=== PATIENT | male | born 1950 | race Caucasian/White ===

== ENCOUNTER → 2016-11-08 | Outpatient (CLI) | payer BC ==
--- NOTE | 2016-11-08 14:24 | CONS ---
DATE OF CONSULTATION: 11/08/2016 CONSULTATION/NEW PATIENT EVALUATION: A 66-year-old gentleman who has been evaluated in the [facility] for possible obstructive sleep apnea-hypopnea syndrome. HISTORY OF PRESENT ILLNESS/SLEEP/WAKE EVALUATION: Patient had a sleep study about 20 years ago but it was not fully conclusive because patient did not sleep well that night in the Sleep Center. [place] state. SLEEP SCHEDULE: Presently, his sleep schedule on working days from 10 p.m. to 7 a.m. and on weekends from around 11 p.m. to 7:30 a.m. FALLING ASLEEP: No problem with the falling asleep although he has TV set in bedroom. DURING SLEEP: He sleeps in different positions including back, side and stomach with his and according to her, he has loud snoring and episodes of stopped breathing during this sleep. Patient wakes up from sleep 4 times with gasping for air and nocturia. DURING THE DAY/WAKE STATE: May feel sleepiness during the day. [place] Sleepiness Scale is slightly increased to 9. He has episodes of irritability, sexual dysfunction and worry about his sleep. . PAST MEDICAL HISTORY: Positive for hypertension, back problem, nose problems. Occasional episodes of restless legs in the evening before sleep. PAST SURGICAL HISTORY: Nasal surgery for nasal septum deviation. MEDICATIONS: Valsartan, diclofenac. SOCIAL HISTORY: Negative for smoking. Alcohol consumption occasional. REVIEW OF SYSTEMS: Tiredness and sleepiness during the day, awakenings from sleep. FAMILY HISTORY: Hypertension, heart problems, sinus headaches, snoring, restless legs. During physical exam, a 66-year-old gentleman without distress. BP 140/81, HR 72, RR 16. Height 5, 10. Weight 197, BMI 28, neck 15-1/2 inches in circumference. Temperature 97.9. Oropharynx extremely low position of soft palate. Submandibular lymph node slightly palpable, but normal range of the size, not painful. NECK: Supple. No JVD. Thyroid is not palpable. LUNGS: Clear to percussion and to auscultation. Good air exchange. No wheezing or rhonchi. HEART: S1, S2 regular. No murmurs, gallops or rubs. ABDOMEN: Soft and nontender. Bowel sounds are present. No organomegaly appreciated. EXTREMITIES: No clubbing or cyanosis. 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 Cranial nerves 2 to 7 intact. There is no fasciculation or atrophy noted. No focal deficits observed. IMPRESSION: 1. Snoring, witnessed episodes of stopped breathing during sleep, extremely low position of soft palate, multiple awakenings from sleep, sleepiness, obstructive sleep apnea-hypopnea syndrome. 2. Hypertension. 3. Back problem. 4. Status post surgery for nasal septum deviation. 5. Occasional episodes of restless legs in the evening before bedtime. PLAN: 1. Polysomnography for evaluation of patient's breathing during sleep. 2. CPAP/BiPAP titration if sleep study confirms obstructive sleep apnea-hypopnea syndrome. 3. Preferable position during sleep on the side. 4. No driving if patient feels any sleepiness. Patient is aware of civil and criminal liability for unsafe driving. 5. I will see patient for follow-up visit to explain results of the testing and following plan. Thank you very much for referring this patient for consultation. Sincerely, Atul Trammell MD, PhD, FAASM. Diplomat of [place] [employer], Sleep Medicine Board by [place] [employer] [place] [employer] [facility] [employer] [facility] [place]
== END | disposition home or self-care (01) ==
LOC: SLEEP 11:43
PROVIDERS: ATTEND Internal Medicine
DX: G47.33 Obstructive sleep apnea (adult) (pediatric) (principal); I10 Essential (primary) hypertension; Z98.890 Other specified postprocedural states; G25.81 Restless legs syndrome; Z79.899 Other long term (current) drug therapy
CPT/HCPCS: 99211

== ENCOUNTER → 2017-01-24 | Outpatient (CLI) | payer BC ==
--- NOTE | 2017-01-24 23:00 | PN ---
DATE OF SERVICE: 01/24/2017 66-year-old gentleman who has been followed in the sleep center for treatment of obstructive sleep apnea-hypopnea syndrome. Patient had recently had diagnostic sleep study and CPAP titration and I discussed results of the sleep studies with the patient in detail. He has moderate, close to severe obstructive sleep apnea by results of home sleep apnea test. He underwent successful CPAP titration. I checked his CPAP unit. It showed that patient is using equipment 100% of the time practically 100% more than 4 hours. Average time is 7.3 hours per night. Pressure is around 10 cm of water. Leak is up to 14 L/min, which is acceptable. Apnea-hypopnea index for last month is 2.1. [place] Sleepiness Scale is 4. Patient sleeps better with the machine and feels better during the day. MEDICATIONS: Valsartan, Diclofenac. During physical exam, the patient in no distress. VITAL SIGNS: BP 152/87, HR 84, RR 16. Weight 196, temp 98.3. Oxygen saturation at room air 94% and extremely low position of soft palate, slight asymmetry of nose. Neck: Supple. No JVD. Thyroid is not palpable. LUNGS: Clear to percussion and to auscultation. Good air exchange. No wheezing or rhonchi. HEART: S1, S2 regular. No murmurs, gallops, or rubs. ABDOMEN: Soft and nontender. Bowel sounds are present. No organomegaly appreciated. EXTREMITIES: No clubbing or cyanosis. 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 Cranial nerves 2 to 7 intact. There is no fasciculation or atrophy noted. No focal deficits observed. IMPRESSION: 1. Moderate, close to severe obstructive sleep apnea-hypopnea syndrome. Apnea-hypopnea index 27.8 with oxygen desaturation to 78% on control with CPAP at 10 cm of water. Patient demonstrated practically 100% compliance with treatment benefiting from treatment. 2. Severe periodic limb movements have been documented during titration. No complaints of movements of the legs at the night at the present time. 3. Hypertension. 4. Back problem. 5. Status post surgical treatment for nasal septum deviation. 6. History of restless legs in the past. PLAN: 1. Patient will continue to use his CPAP equipment every night for the whole night. 2. Watching weight. 3. We will try nasal pillow mask. 4. No driving if feeling any sleepiness. Thank you very much for allowing me to participate in the management of your patient. Sincerely, Atul Trammell MD, PhD, FAASM. Diplomat of [place] [employer], Sleep Medicine Board by [employer] [employer] [employer] [facility] [place]
== END | disposition home or self-care (01) ==
LOC: SLEEP 14:32
PROVIDERS: ATTEND Internal Medicine
DX: G47.33 Obstructive sleep apnea (adult) (pediatric) (principal); I10 Essential (primary) hypertension; Z79.899 Other long term (current) drug therapy

== ENCOUNTER → 2017-01-30 | Outpatient (CLI) | payer BC ==
[2017-01-30 14:09] LABS: Basophils % (A) 1 %; CH 35.2; CHCM 34.9; Eosinophils # (A) 0.1 k/uL (0-0.7); Eosinophils % (A) 2 %; HCT 47.9 % (39.0-53.0); HDW 2.58; HGB 16.4 gm/dL (13.0-17.5); Luc # (Auto) 0.15; Luc % (Auto) 2; Lymphocytes # (A) 1.2 k/uL (1.0-4.8); Lymphocytes % (A) 20 %; MCH 34.7 pg (25.0-35.0); MCHC 34.2 g/dL (31.0-37.0); MCV 101.2 fL (80.0-100.0); Macrocytosis Slight; Monocytes # (A) 0.4 k/uL (0-1.0); Monocytes % (A) 6 %; Neutrophils # (A) 4.2 k/uL (1.3-7.7); Neutrophils % (A) 69 %; RBC 4.73 m/uL (4.30-5.90); RDW 13.2 % (11.5-15.5); WBC 6.1 k/uL (3.8-10.6); WBC (Perox) 5.78
[2017-01-30 14:13] LABS: Appearance,Urine Clear (Clear); Bilirubin,Urine Negative (Negative); Glucose,Urine (UA) Negative (Negative); Ketones,Urine Negative (Negative); Leukocyte Esterase,Urine Negative (Negative); Mucus,Urine Rare /hpf; Nitrite,Urine Negative (Negative); PH, Urine 5.5 (5.0-8.0); Particle Count 1411; Protein,Urine 1+ (Negative); Specific Gravity,Urine 1.019 (1.001-1.035); UA Billing (MACRO vs. MICRO) MICRO; Urobilinogen,Urine <2.0 mg/dL (<2.0)
[2017-01-30 14:29] LABS: Anion Gap 12 mmol/L; Blood Urea Nitrogen 23 mg/dL (9-20); Calcium 9.8 mg/dL (8.4-10.2); Carbon Dioxide 29 mmol/L (22-30); Chloride 106 mmol/L (98-107); Glucose 117 mg/dL (74-99); Non-African American GFR(MDRD) >60 (>60 ml/min/1.73 sqM); Potassium 4.2 mmol/L (3.5-5.1); Sodium 147 mmol/L (137-145)
== END | disposition home or self-care (01) ==
LOC: LABPAT 13:42
PROVIDERS: ATTEND Urology
DX: Z01.812 Encounter for preprocedural laboratory examination (principal); R35.0 Frequency of micturition; Z79.899 Other long term (current) drug therapy
CPT/HCPCS: 80048; 81001; 85025; 87086

== ENCOUNTER 2017-02-06 07:32 | Day surgery (SDC) | payer BC ==
[2017-02-04 10:31] VITALS: BMI 25.7
[~2017-02-06 07:32] MED LIST: AMPICILLIN 1,000 MG in SODIUM CHLORIDE 0.9% 50 ML IVPB ONE; DEXAMETHASONE SOD PHOSPHATE 10 MG/ML 1 ML VIAL IV ONE; GENTAMICIN 120 MG in SODIUM CHLORIDE 0.9% 100 ML IVPB ONE; HYDROmorphone 1 MG/ML 1 ML SYRINGE IVP PRN; LACTATED RINGERS 1,000 ML IV SCH; LIDOCAINE 1% 20 ML VIAL (10MG/ML) FOR IV START INTRADERMA PRN; ONDANSETRON 4 MG/2 ML VIAL IVP ONE; SCOPOLAMINE 1.5MG/72HR PATCH TRANSDERM ONE
[2017-02-06] MEDS ORDERED: PROPOFOL 10 MG/ML 20 ML VIAL IV ONE (08:52)
[2017-02-06] MEDS ORDERED: GLYCOPYRROLATE 0.2 MG/ML 2 ML VIAL ONE (08:52)
[2017-02-06] MEDS ORDERED: HYDROmorphone (PF) 1 MG/ML ONE (08:52)
[2017-02-06] MEDS ORDERED: fentaNYL (PF) 50 MCG/ML 2 ML AMP ONE (08:52)
[2017-02-06] MEDS ORDERED: LIDOCAINE 1% INJ 10MG/ML (20 ML MDV) ONE (08:52)
[2017-02-06] MEDS ORDERED: MIDAZOLAM 2 MG/2 ML VIAL ONE (08:52)
[2017-02-06] MEDS ORDERED: GENTAMICIN 80 MG in SODIUM CHLORIDE 0.9% 500 ML IRRIGATION ONE (09:18)
[2017-02-06] MEDS ORDERED: LACTATED RINGERS 1,000 ML IV ONE (09:59)
--- NOTE | 2017-02-06 10:27 | P.OP ---
Date of Procedure: 02/06/17 Preoperative Diagnosis: Organic impotence Postoperative Diagnosis: Same Procedure(s) Performed: Insertion of AMS series 700 CX inflatable penile implant, 18 cm +2 cm rear-tip bdr ,65 mL reservoir Implants: Anesthesia: MARITZA Surgeon: Reginald Barber Trade Mark Examiner #1: [place] Varma Estimated Blood Loss (ml): 50 Pathology: none sent Condition: stable Disposition: PACU Indications for Procedure: The patient is a 66-year-old gentleman with organic impotence who was failed all conservative measures including testosterone PDE 5 inhibitors vasoactive injections and a vacuum pump. He comes for an inflatable penile implant. Operative Findings: Description of Procedure: The patient is brought to the operating suite he is given a successful general endotracheal anesthesia. He is given us sterile prep and drape. The midline infrapubic to suprapubic incision is made. The distal end of the rectus fascias exposed and opened. The prevesical space was developed. A 65 mL reservoir was placed in that space with tubing brought out through the right external ring. The rectus fascias closed with running 0 PDS. I exposed both corpora. Corporotomies were made bilaterally. The corporal tissue is dilated with Metzenbaum scissors and then Hegar dilators 9-13. It measures 11 cm proximal and 9 cm distal. 18 cm implants CX with 2 cm rear tip extenders were used. Using the Nathan needle and Caro introducers the implants or introduced through the distal end of the corpora with the needles coming out through the head of the penis. Both ends were seated proximally. Both implants are inflated. There adjusted to make sure there is no deformities. The corporotomies are closed with 3-0 PDS. The pump was placed superficially in the scrotum on the right side. The reservoir was connected to the pump with straight connects. I inflate and deflate the implant and works nicely. The subcutaneous tissues closed with 3-0 chromic and the skin with a 4-0 Vicryl. Awakened and returned recovery room good condition. Blood loss is 50 mL. He' ll be discharged home upon recovery.
[2017-02-06 10:37] VITALS: TEMP 97
[2017-02-06] MEDS ORDERED: HYDROcodone/APAP 7.5-325MG 1 EACH TAB PO ONE (11:46)
[2017-02-06 12:12] VITALS: RESP 16
[2017-02-06 12:13] VITALS: BP 163/95; PULSE 68
== END 2017-02-06 12:44 | disposition home or self-care (01) ==
LOC: OR 07:32
PROVIDERS: ATTEND Urology
DX: N52.8 Other male erectile dysfunction (principal); N40.0 Benign prostatic hyperplasia without lower urinary tract symptoms; I10 Essential (primary) hypertension; G47.33 Obstructive sleep apnea (adult) (pediatric); Z87.442 Personal history of urinary calculi; Z79.899 Other long term (current) drug therapy
CPT/HCPCS: 54401; C1713; C1813; J2250; J1580 ×2; J1100; J2405; J2001; J3010; J0290; J1170; J2704

== ENCOUNTER → 2017-04-30 | Outpatient (CLI) | payer MEDICARE ==
[2017-04-30 14:34] LABS: Basophils % (A) 1 %; CHCM 36.8; Eosinophils # (A) 0.2 k/uL (0-0.7); Eosinophils % (A) 3 %; HCT 45.3 % (39.0-53.0); HDW 2.65; HGB 16.1 gm/dL (13.0-17.5); Luc % (Auto) 2; Lymphocytes # (A) 1.2 k/uL (1.0-4.8); Lymphocytes % (A) 22 %; MCH 34.8 pg (25.0-35.0); MCHC 35.4 g/dL (31.0-37.0); MCV 98.3 fL (80.0-100.0); Mean Platelet Volume 8.2; Monocytes # (A) 0.3 k/uL (0-1.0); Monocytes % (A) 5 %; Neutrophils # (A) 3.8 k/uL (1.3-7.7); Neutrophils % (A) 69 %; RBC 4.61 m/uL (4.30-5.90); RDW 13.9 % (11.5-15.5); WBC 5.5 k/uL (3.8-10.6); WBC (Perox) 5.21
== END | disposition home or self-care (01) ==
LOC: LABPAT 13:50
PROVIDERS: ATTEND Urology
DX: Z01.812 Encounter for preprocedural laboratory examination (principal); T83.118A Breakdown (mechanical) of other urinary devices and implants, initial encounter
CPT/HCPCS: 85025

== ENCOUNTER 2017-05-08 08:03 | Day surgery (SDC) | payer MEDICARE ==
[2017-05-06 16:26] VITALS: BMI 27.8
[~2017-05-08 08:03] MED LIST changes: -AMPICILLIN 1,000 MG in SODIUM CHLORIDE 0.9% 50 ML IVPB ONE; +AMPICILLIN 2,000 MG in SODIUM CHLORIDE 0.9% 100 ML IVPB ONE; -GENTAMICIN 120 MG in SODIUM CHLORIDE 0.9% 100 ML IVPB ONE; +GENTAMICIN 140 MG in SODIUM CHLORIDE 0.9% 100 ML IVPB ONE; -HYDROmorphone 1 MG/ML 1 ML SYRINGE IVP PRN; -LIDOCAINE 1% 20 ML VIAL (10MG/ML) FOR IV START INTRADERMA PRN; -SCOPOLAMINE 1.5MG/72HR PATCH TRANSDERM ONE
[2017-05-08] MEDS ORDERED: LIDOCAINE 1% 20 ML VIAL (10MG/ML) FOR IV START INTRADERMA ONE (08:22)
[2017-05-08] MEDS ORDERED: MIDAZOLAM 2 MG/2 ML VIAL ONE (10:16)
[2017-05-08] MEDS ORDERED: HYDROmorphone (PF) 1 MG/ML ONE (10:16)
[2017-05-08] MEDS ORDERED: PROPOFOL 10 MG/ML 20 ML VIAL IV ONE (10:16)
[2017-05-08] MEDS ORDERED: ePHEDrine SULFATE/0.9% NACL/PF 50 MG/5 ML SYRINGE IV ONE (10:16)
[2017-05-08] MEDS ORDERED: LIDOCAINE 1% INJ 10MG/ML (20 ML MDV) ONE (10:16)
[2017-05-08] MEDS ORDERED: fentaNYL (PF) 50 MCG/ML 2 ML AMP ONE (10:16)
[2017-05-08] MEDS ORDERED: GENTAMICIN 80 MG in SODIUM CHLORIDE 0.9% 200 ML IRRIGATION ONE (10:40)
[2017-05-08] MEDS ORDERED: LACTATED RINGERS 1,000 ML IV ONE (11:55)
--- NOTE | 2017-05-08 12:08 | P.OP ---
Date of Procedure: 05/08/17 Preoperative Diagnosis: Malfunctioning penile implant Postoperative Diagnosis: , Same secondary to leak of right cylinder Procedure(s) Performed: Exploration of penile implant with replacement of penile implant, AMS CX 718 cm +2 cm rear-tip concrete layer with 65 mL reservoir Anesthesia: MARITZA Surgeon: Reginald Barber Pathology: none sent Condition: stable Disposition: PACU Indications for Procedure: The patient is a 67-year-old gentleman who approximately 2 months ago underwent placement of inflatable penile prosthesis. He recuperated nicely. When he is learning how to use the implant it did not seem to inflate appropriately. The reservoir collapse and did not refill. I was concerned that there is either not enough fluid or there is an injury to the implant. He comes for exploration Description of Procedure: The patient is brought to the operating suite and given a successful general endotracheal anesthesia. A midline infrapubic incision is made through the old scar. I dissect down through subcutaneous tissue until I identified the tubing with the implant. I follow and identify the tubing to the pump to the reservoir and to the penile cylinders. I removed the pump from the scrotum. Using rubber-shod clamps to clamp the to the pump and the tubing to the reservoir. I then pulled the remaining fluid out of the cylinders and inspected closely. It appears to be slightly cloudy. I pulled the fluid out of the reservoir and the same. With this in mind I'm afraid there is a hole somewhere in the implant. I thus elected to replace the whole implant. I dissect over each cylinder and remove each cylinder. I removed the reservoir from the prevesical space. I removed the pump. Inspect each cylinder and the right cylinder more towards the distal region there is a small pinpoint hole in the cylinder causing the leakage. I used 18 cm CX 700 series implant with 2 cm rear tip extenders as this is what he previously had. I use a 65 mL reservoir. The reservoir was placed in that old compartment. I closed the rectus fascia with 0 PDS. I then filled the reservoir 65 mL of saline. Then using the Nathan needle and Caro introducers I place the cylinders in each corpora. It seats distally and proximally. I closed the corporotomies with 3-0 PDS. I then connected the scrotal pump to the reservoir with straight connects. I placed the scrotal pump and a little more lateral position and I move the tubing to the right as requested by the patient. The site inflate and deflate the implant and it does so without difficulty. I closed the subcutaneous tissue with 3-0 chromic. The skin was closed with 4-0 Vicryl. The patient's awake and returned recovery in good condition. Blood loss is less than 50 mL. He'll be discharged home upon recovery.
[2017-05-08 12:17] VITALS: TEMP 97
[2017-05-08] MEDS: HYDROmorphone 1 MG/ML 1 ML SYRINGE IVP PRN ×2 (12:33→12:38)
[2017-05-08] MEDS ORDERED: ENALAPRILAT 1.25 MG/ML 1 ML VIAL IVP ONE (12:47)
[2017-05-08 12:52] VITALS: RESP 16
[2017-05-08] MEDS ORDERED: HYDROcodone/APAP 5-325MG 1 EACH TAB PO ONE (13:49)
[2017-05-08 14:06] VITALS: BP 135/78; PULSE 97
== END 2017-05-08 14:40 | disposition home or self-care (01) ==
LOC: OR 08:03
PROVIDERS: ATTEND Urology
DX: T83.490A Other mechanical complication of implanted penile prosthesis, initial encounter (principal); Z79.899 Other long term (current) drug therapy; I10 Essential (primary) hypertension; N40.0 Benign prostatic hyperplasia without lower urinary tract symptoms; B00.9 Herpesviral infection, unspecified; G47.33 Obstructive sleep apnea (adult) (pediatric); Z79.891 Long term (current) use of opiate analgesic
CPT/HCPCS: 54410; J2250; J1580 ×2; J1100; J2405; J2001; J3010; J0290; J1170; J2704